=== PATIENT | female | born 1945 | race Hispanic/Latino ===

== ENCOUNTER 2016-05-27 07:58 | Day surgery (SDC) | payer MEDICARE, OTHER ==
[2016-05-16 09:04] VITALS: BMI 32.3
[2016-05-27] MEDS ORDERED: Propofol 10 mg/ml Inj (20 ML) ONE (10:55)
[2016-05-27] MEDS ORDERED: Sodium Chloride 0.9% 1,000 ML IV SCH (11:30)
[2016-05-27 12:21] VITALS: BP 132/63; PULSE 74; RESP 16; TEMP 97.6; O2SAT 98
== END 2016-05-27 12:50 | disposition home or self-care (01) ==
LOC: ENDO 07:58
PROVIDERS: ATTEND Internal Medicine Gastroenterology
DX: Z12.11 Encounter for screening for malignant neoplasm of colon (principal); K57.30 Diverticulosis of large intestine without perforation or abscess without bleeding; K64.4 Residual hemorrhoidal skin tags; K64.8 Other hemorrhoids
CPT/HCPCS: 45378; J2001; J2704; J7040 ×2

== ENCOUNTER 2017-05-14 09:23 | Emergency (ER) | payer MEDICARE, OTHER ==
[2017-05-14 09:24] VITALS: BMI 32.3
[2017-05-14 09:49] VITALS: BP 141/85; PULSE 103; RESP 19; TEMP 98; O2SAT 98
--- NOTE | 2017-05-14 10:21 | ED PDOC ---
Arrival/HPI - General Chief Complaint: Abnormal Skin Integrity Time Seen by Provider: 05/14/17 09:29 Historian: Patient - History of Present Illness Narrative History of Present Illness (Text): 05/14/17 10:14 Patient is a 71F with a PMH of HTN, hyperthyroid and hx of bilateral breast CA comes to the ED with a CC of diffuse itchiness all over her body. She states it started yesterday morning. Denies any allergic triggers (food, pets, medication , enviormental, soaps, detergents). Denies any SOB or chest pain. States that it became progressively worse. She was unable to sleep last night due to the itchiness. No other complaints at this time. Denies any prior episodes. Symptom Onset: Gradual Symptom Course: Worsening Activities at Onset: Rest Past Medical History - Infectious Disease Hx of Infectious Diseases: None - Reproductive Menopause: Yes - Cardiac Hx Pacemaker: No - Neurological Hx Paralysis: No - Hematological/Oncological Hx Blood Transfusions: No Hx Blood Transfusion Reaction: No - Musculoskeletal/Rheumatological Hx Musculoskeletal Disorders: No - Genitourinary/Gynecological Other/Comment: breast ca 1994, 2009 - Psychiatric Hx Emotional Abuse: No Hx Physical Abuse: No Hx Substance Use: No - Surgical History Other/Comment: lumpectomy-1994, 1995 - Anesthesia Hx Anesthesia: Yes Hx Anesthesia Reactions: No Hx Malignant Hyperthermia: No - Suicidal Assessment Feels Threatened In Home Enviroment: No Family/Social History - Physician Review Nursing Documentation Reviewed: Yes Family/Social History: Unknown Family HX Smoking Status: Never Smoked Hx Alcohol Use: No Hx Substance Use: No Allergies/Home Meds Allergies/Adverse Reactions: Allergies No Known Allergies Allergy (Verified 05/14/17 09:49) Home Medications: Home Meds Medication Instructions Recorded Confirmed Biotin 800 mcg PO DAILY 05/16/16 05/14/17 Levothyroxine [Synthroid] 88 mcg PO DAILY 05/16/16 05/14/17 [place]-3S/Dha/Epa/Fish Oil [Fish 1 tab PO DAILY 05/16/16 05/14/17 Oil [place]-3 Softgel] Vitamin C 500 mg Tab 1 tab PO DAILY 05/16/16 05/14/17 Vitamin D3 1 tab PO DAILY 05/16/16 05/14/17 amLODIPine [Norvasc] 10 mg PO DAILY 04/03/17 04/01/18 Review of Systems - Review of Systems Constitutional: Normal, Other (pruritis, diffuse) Eyes: Normal ENT: Normal Respiratory: Normal Cardiovascular: Normal Gastrointestinal: Normal Genitourinary Female: Normal Musculoskeletal: Normal Skin: Pruritis Neurological: Normal Endocrine: Normal Hemo/Lymphatic: Normal Psychiatric: Normal Physical Exam Vital Signs Reviewed: Yes Vital Signs Temp Pulse Resp BP Pulse Ox 05/14/17 09:41 98 F 103 H 19 141/85 98 Temperature: Afebrile Blood Pressure: Normal Pulse: Tachycardic Respiratory Rate: Normal Appearance: Positive for: Well-Appearing, Non-Toxic, Comfortable Pain Distress: None Mental Status: Positive for: Alert and Oriented X 3 - Systems Exam Head: Present: Atraumatic, Normocephalic Pupils: Present: PERRL Extroacular Muscles: Present: EOMI Conjunctiva: Present: Normal Mouth: Present: Moist Mucous Membranes Neck: Present: Normal Range of Motion Respiratory/Chest: Present: Clear to Auscultation, Good Air Exchange. No: Respiratory Distress, Accessory Muscle Use Cardiovascular: Present: Regular Rate and Rhythm, Normal S1, S2. No: Murmurs Abdomen: Present: Normal Bowel Sounds. No: Tenderness, Distention, Peritoneal Signs Upper Extremity: Present: Normal Inspection. No: Cyanosis, Edema Lower Extremity: Present: Normal Inspection. No: Edema Neurological: Present: GCS=15, CN II-XII Intact, Speech Normal Skin: Present: Warm, Dry, Rashes (erythema w/o wheals on the upper back and shoulders bilaterally, no pustulus or papules identified). No: Normal Color Psychiatric: Present: Alert, Oriented x 3, Normal Insight, Normal Concentration Medical Decision Making ED Course and Treatment: 05/14/17 10:25 71F with possible allergic reaction w/rash - was previously on Levaquin for URI prescribed by PMD. Today would have been the last day of a 10 day course. Although unlikely the cause, advised patient to stop taking antibiotic - prednisone 40mg 1x - benadryl 50mg 1x - reeval and dispo 05/14/17 10:35 - patients rash and itchiness is improving - discharge wth prednisone and benadryl. Instructed to follow up with primary doctor - Medication Orders Current Medication Orders: Discontinued Medications Diphenhydramine HCl (Benadryl) 50 mg PO STAT STA Stop: 05/14/17 10:08 Last Admin: 05/14/17 10:24 Dose: 50 mg Prednisone (Prednisone Tab) 40 mg PO STAT STA Stop: 05/14/17 10:08 Last Admin: 05/14/17 10:23 Dose: 40 mg - PA / [employer] / Resident Statement / has reviewed & agrees with the documentation as recorded. / has examined the patient and agrees with the treatment plan. Disposition/Present on Arrival - Present on Arrival Any Indicators Present on Arrival: No History of DVT/PE: No History of Uncontrolled Diabetes: No Urinary Catheter: No History of Decub. Ulcer: No History Surgical Site Infection Following: None - Disposition Have Diagnosis and Disposition been Completed?: Yes Diagnosis: Rash due to allergy Disposition: HOME/ ROUTINE Disposition Time: 10:43 Patient Plan: Discharge Condition: STABLE Discharge Instructions (ExitCare): Skin Rash (DC) Additional Instructions: Nataliia, thank you for letting us take care of you today. Your provider was Dr. Lemus and Dr. Peacock. You were treated for a rash. The emergency medical care you received today was directed at your acute symptoms. If you were prescribed any medication, please fill it and take as directed. It may take several days for your symptoms to resolve. Return to the Emergency Department if your symptoms worsen, do not improve, or if you have any other problems. Please contact your doctor or call one of the physicians/clinics you have been referred to that are listed on the Patient Visit Information form that is included in your discharge packet. Bring any paperwork you were given at discharge with you along with any medications you are taking to your follow up visit. Our treatment cannot replace ongoing medical care by a primary care provider (PCP) outside of the emergency department. Thank you for allowing the [facility] team to be part of your care today. Prescriptions: DiphenhydrAMINE [Benadryl] 25 mg PO Q6H PRN 5 Days cap PRN Reason: Itching / Pruritus Prednisone 50 mg PO DAILY 5 Days tablet Forms: [employer] ([place])
== END 2017-05-14 10:54 | disposition home or self-care (01) ==
LOC: ED 09:23
DX: L27.0 Generalized skin eruption due to drugs and medicaments taken internally (principal); I10 Essential (primary) hypertension; E05.90 Thyrotoxicosis, unspecified without thyrotoxic crisis or storm; Z85.3 Personal history of malignant neoplasm of breast